=== PATIENT | female | born 1950 | race Caucasian/White ===

== ENCOUNTER → 2019-04-02 | Outpatient (CLI) | payer MEDICARE ==
[~2019-04-02] MED LIST: CYCL10TA9 PO; IBUP-1780 PO
--- NOTE | 2019-04-02 13:50 | Diagnostic Imaging Report ---
INDICATION: Abdominal pain and constipation. TIME OF EXAM: 1:34 PM COMPARISON: No prior studies are available for comparison. FINDINGS: No free air is identified. Bowel gas pattern is nonobstructive. Moderate stool in the right colon is noted. No pathological calcifications are seen. IMPRESSION: Moderate stool of right colon. The study is otherwise unremarkable. Dictated by: Dictated on workstation # [id number]
== END ==
LOC: RAD FS 13:16
PROVIDERS: ATTEND Nurse Practitioner
DX: K59.00 Constipation, unspecified (principal); R10.9 Unspecified abdominal pain; R19.5 Other fecal abnormalities
CPT/HCPCS: 74019

== ENCOUNTER 2019-04-03 00:12 | Emergency (ER) | payer MEDICARE ==
[~2019-04-03] VITALS: Ht 162.6 cm; Wt 69.0 kg
--- NOTE | 2019-04-03 00:23 | ED General ---
General Chief Complaint: Abdominal/GI Problems Stated Complaint: CONSPITATION,LOW BACK PAIN Source of Information: Patient History of Present Illness Date Seen by Provider: Apr 03, 2019 Time Seen by Provider: 00:22 Initial Comments Patient is a 68 y/o female who presents to the ER [facility] c/o constipation. Patient states she has been having pain over the left lower thoracic area back over the last week. Pain is worse with movement and worse when she tries to lay flat. Patient reports she has had difficulty sleeping because of the pain. She did not have any strenuous activity or traumatic event. She has not had similar symptoms in the past. Patient also reports having some difficulties having normal bowel movements since 16 March. Over the last week she also reports having some distention of her abdomen and diffuse mild pain. No nausea or vomiting. Patient was seen by her primary care doctor earlier today when she did have a KUB completed. Patient was told she had constipation and went home and took stool softeners and MiraLAX. She did not have any relief of her symptoms so she came to the ER [facility]. No urinary symptoms. No recent fever or chills. Allergies and Home Medications Allergies Coded Allergies: No Known Allergies (Verified Allergy, Unknown, 04/03/19) Home Medications Cyclobenzaprine HCl 10 Mg Tablet, 10 MG PO TID Prescribed by: SELENA ROSE on 04/03/19 0243 Ibuprofen 800 Mg Tablet, 800 MG PO Q8H PRN for PAIN Prescribed by: SELENA ROSE on 04/03/19 0243 Patient Home Medication List Home Medication List Reviewed: Yes Review of Systems Review of Systems Constitutional: no symptoms reported EENTM: no symptoms reported Respiratory: no symptoms reported Cardiovascular: no symptoms reported Gastrointestinal: see HPI : No Musculoskeletal: no symptoms reported Skin: no symptoms reported All Other Systems Reviewed Negative Unless Noted: Yes Past Cudcjha-Xrcmyd-Zokyoq Hx Patient Social History Recent Foreign Travel: No Contact w/Someone Who Travel: No Physical Exam Vital Signs Vital Signs - First Documented 04/03/19 00:22 Pulse 101 Resp 19 B/P (MAP) 166/83 (110) O2 Delivery Room Air Capillary Refill : Height, Weight, BMI Height: '" Weight: lbs. oz. kg; BMI Method: General Appearance: No Apparent Distress, WD/WN Eyes: Bilateral Eye Normal Inspection HEENT: PERRL/EOMI, Normal ENT Inspection Neck: Full Range of Motion, Normal Inspection Respiratory: Lungs Clear Cardiovascular: Regular Rate, Rhythm, No Murmur Gastrointestinal: Normal Bowel Sounds, Non Tender, Soft Extremity: Normal Capillary Refill Neurologic/Psychiatric: Alert, Oriented x3, office director II-XII Norm as Tested Skin: Normal Color, Warm/Dry Progress/Results/Core Measures Suspected Sepsis SIRS Temperature: Pulse: Respiratory Rate: Laboratory Tests 04/03/19 01:10: White Blood Count 10.4 Blood Pressure / Mean: Laboratory Tests 04/03/19 01:10: Creatinine 0.82, Platelet Count 346 Results/Orders Lab Results Laboratory Tests Test 04/03/19 00:37 04/03/19 01:10 Range/Units Urine Color YELLOW Urine Clarity CLEAR Urine pH 8.0 5-9 Urine Specific [place] 1.020 1.016-1.022 Urine Protein NEGATIVE NEGATIVE Urine Glucose (UA) NEGATIVE NEGATIVE Urine Ketones 1+ H NEGATIVE Urine Nitrite NEGATIVE NEGATIVE Urine Bilirubin NEGATIVE NEGATIVE Urine Urobilinogen 0.2 < = 1.0 MG/DL Urine Leukocyte Esterase NEGATIVE NEGATIVE Urine RBC (Auto) NEGATIVE NEGATIVE Urine RBC 5-10 H /HPF Urine WBC NONE /HPF Urine Squamous Epithelial Cells 25-50 H /HPF Urine Crystals NONE /LPF Urine Bacteria TRACE /HPF Urine Casts PRESENT /LPF Urine Granular Casts 0-2 H /LPF Urine Mucus NEGATIVE /LPF Urine Culture Indicated NO White Blood Count 10.4 4.3-11.0 10^3/uL Red Blood Count 5.01 4.35-5.85 10^6/uL Hemoglobin 14.4 11.5-16.0 G/DL Hematocrit 43 35-52 % Mean Corpuscular Volume 85 80-99 FL Mean Corpuscular Hemoglobin 29 25-34 PG Mean Corpuscular Hemoglobin Concent 34 32-36 G/DL Red Cell Distribution Width 12.4 10.0-14.5 % Platelet Count 346 130-400 10^3/uL Mean Platelet Volume 8.8 7.4-10.4 FL Neutrophils (%) (Auto) 68 42-75 % Lymphocytes (%) (Auto) 19 12-44 % Monocytes (%) (Auto) 8 0-12 % Eosinophils (%) (Auto) 4 0-10 % Basophils (%) (Auto) 1 0-10 % Neutrophils # (Auto) 7.1 1.8-7.8 X 10^3 Lymphocytes # (Auto) 2.0 1.0-4.0 X 10^3 Monocytes # (Auto) 0.9 0.0-1.0 X 10^3 Eosinophils # (Auto) 0.4 H 0.0-0.3 10^3/uL Basophils # (Auto) 0.1 0.0-0.1 10^3/uL Sodium Level 136 135-145 MMOL/L Potassium Level 4.7 3.6-5.0 MMOL/L Chloride Level 98 98-107 MMOL/L Carbon Dioxide Level 23 21-32 MMOL/L Anion Gap 15 H 5-14 MMOL/L Blood Urea Nitrogen 10 7-18 MG/DL Creatinine 0.82 0.60-1.30 MG/DL Estimat Glomerular Filtration Rate > 60 BUN/Creatinine Ratio 12 Glucose Level 132 H 70-105 MG/DL Calcium Level 9.5 8.5-10.1 MG/DL Lipase 24 8-78 U/L My Orders Orders - SELENA ROSE DO Urinalysis (04/03/19 00:33) Ed Iv/Invasive Line Start (04/03/19 00:53) Cbc With Automated Diff (04/03/19 00:53) Basic Metabolic Panel (04/03/19 00:53) Lipase (04/03/19 00:53) Ct Abdomen/Pelvis W (04/03/19 00:53) Ketorolac Injection (Toradol Injection) (04/03/19 01:00) Orphenadrine Injection (Norflex Injectio (04/03/19 01:00) Ns Iv 1000 Ml (Sodium Chloride 0.9%) (04/03/19 01:00) Iohexol Injection (Omnipaque 350 Mg/Ml 1 (04/03/19 01:00) Received Contrast (Hold Metformin- Contr (04/03/19 01:00) Ns (Ivpb) (Sodium Chloride 0.9% Ivpb Bag (04/03/19 01:00) Urine Culture (04/03/19 00:37) Soap Suds Enema (04/03/19 01:07) Ondansetron Injection (Zofran Injectio (04/03/19 02:15) Medications Given in ED Current Medications Medications Dose Ordered Sig/Bear Route Start Time Stop Time Status Last Admin Dose Admin Iohexol 100 ml ONCE ONCE IV 04/03/19 01:00 04/03/19 01:01 DC 04/03/19 01:19 100 ML Ketorolac Tromethamine 30 mg ONCE ONCE IVP 04/03/19 01:00 04/03/19 01:01 DC 04/03/19 01:12 30 MG Ondansetron HCl 4 mg ONCE ONCE IVP 04/03/19 02:15 04/03/19 02:16 DC 04/03/19 02:24 4 MG Orphenadrine Citrate 60 mg ONCE ONCE IV 04/03/19 01:00 04/03/19 01:01 DC 04/03/19 01:12 60 MG Sodium Chloride 100 ml ONCE ONCE IV 04/03/19 01:00 04/03/19 01:01 DC 04/03/19 01:19 100 ML Vital Signs/I&O 04/03/19 00:22 Pulse 101 Resp 19 B/P (MAP) 166/83 (110) O2 Delivery Room Air Capillary Refill : Progress Note : Time: 00:51 Progress Note Patient is examined on arrival to her room. Patient complains of abdominal distention but the physical examination of her abdomen is entirely benign. No tenderness to palpation. No guarding or rebound. I did review the x-ray from earlier today and the patient does have large stool burden but a nonobstructive bowel gas pattern. On physical exam, the patient has muscle spasm and tenderness to palpation about the thoracic paraspinal muscles. Her pain complaint this evening seems very much musculoskeletal rather than pain secondary to constipation. Tonight we will check UA and basic labs, place IV and give pain medications and IVF's and evaluate CT scan. 02:50: All results are reviewed and discussed with the patient. This evening, her labs were unremarkable other than some dehydration. She was given 1 L of normal saline in the ER. She was given Toradol and Norflex intravenous which did mildly help her symptoms. Patient underwent soapsuds enema with no significant return of stool during the ED course. Overall, she was feeling improved. CT scan of the abdomen and pelvis was performed and did not reveal any acute cause for her pain or presentation. The patient presentation seems most consistent with musculoskeletal back pain. She is discharged home with Flexeril and Motrin. I also spoke to her about constipation management which is primarily achieved. [id number] medications, diet, exercise, and better hydration. Although the patient's questions were answered. She was agreeable to the plan of care including discharge home. She will contact her primary care doctor for follow-up as needed or come back to the ER as needed. ECG Initial ECG Impression Date: Apr 03, 2019 Initial ECG Impression Time: 00:50 Departure Impression Primary Impression: Musculoskeletal back pain Additional Impression: Constipation Disposition: 01 HOME, SELF-CARE Condition: Improved Departure-Patient Inst. Referrals: NO,LOCAL PHYSICIAN (PCP/Family) Primary Care Physician Scripts Cyclobenzaprine HCl (Cyclobenzaprine HCl) 10 Mg Tablet 10 MG PO TID for Muscle Spasms, #21 TAB Prov: SELENA ROSE DO 04/03/19 Ibuprofen (Ibuprofen) 800 Mg Tablet 800 MG PO Q8H PRN for PAIN, #30 TAB 0 Refills Prov: SELENA ROSE DO 04/03/19 SELENA ROSE DO Apr 03, 2019 00:23
[2019-04-03 00:47] LABS: CLARITY,URINE CLEAR; COLOR,URINE YELLOW; GLUCOSE, URINE (UA) NEGATIVE (NEGATIVE); KETONES,URINE 1+ (NEGATIVE); NITRITE,URINE NEGATIVE (NEGATIVE); PROTEIN,URINE NEGATIVE (NEGATIVE)
[2019-04-03 00:48] LABS: BILIRUBIN,URINE NEGATIVE (NEGATIVE); LEUKOCYTE ESTERASE ,URINE NEGATIVE (NEGATIVE)
[2019-04-03 00:51] LABS: BACTERIA,URINE TRACE /HPF
[2019-04-03 00:52] LABS: GRANULAR CASTS,URINE 0-2 /LPF; SQUAMOUS EPITHELIAL CELL,UR 25-50 /HPF
[2019-04-03] MEDS ORDERED: KETOROLAC 30 MG/ML VIAL IVP ONE (01:00)
[2019-04-03] MEDS ORDERED: HOLD METFORMIN - RECEIVED CONTRAST 20 ML VIAL IV SCH (01:00)
[2019-04-03] MEDS ORDERED: NS IV 1000 ML 1,000 ML IV SCH (01:00)
[2019-04-03] MEDS ORDERED: NS 100 ML (IVPB) BAG IV ONE (01:00)
[2019-04-03] MEDS ORDERED: ORPHENADRINE 60 MG/2 ML (NORFLEX) AMP IV ONE (01:00)
[2019-04-03] MEDS ORDERED: IOHEXOL 350 MG/ML 100 ML (OMNIPAQUE 350) VIAL IV ONE (01:00)
[2019-04-03 01:13] LABS: HEMATOCRIT 43 % (35-52); HEMOGLOBIN 14.4 G/DL (11.5-16.0); MEAN CORPUSCULAR HEMOGLOBIN 29 PG (25-34); MEAN CORPUSCULAR HGB CONC 34 G/DL (32-36); MEAN CORPUSCULAR VOLUME 85 FL (80-99); RED CELL DISTRIBUTION WIDTH 12.4 % (10.0-14.5); WHITE BLOOD COUNT 10.4 10^3/uL (4.3-11.0)
[2019-04-03 01:14] LABS: BASOPHILS # (AUTO) 0.1 10^3/uL (0.0-0.1); BASOPHILS % (AUTO) 1 % (0-10); EOSINOPHILS # (AUTO) 0.4 10^3/uL (0.0-0.3); EOSINOPHILS % (AUTO) 4 % (0-10); LYMPHOCYTES % (AUTO) 19 % (12-44); MEAN PLATELET VOLUME 8.8 FL (7.4-10.4); MONOCYTES # (AUTO) 0.9 X 10^3 (0.0-1.0); MONOCYTES % (AUTO) 8 % (0-12); NEUTROPHILS # (AUTO) 7.1 X 10^3 (1.8-7.8); NEUTROPHILS % (AUTO) 68 % (42-75); PLATELET COUNT 346 10^3/uL (130-400)
[2019-04-03 01:35] LABS: BUN/CREATININE RATIO 12; CALCIUM 9.5 MG/DL (8.5-10.1); CARBON DIOXIDE 23 MMOL/L (21-32); CHLORIDE 98 MMOL/L (98-107); CREATININE SERUM 0.82 MG/DL (0.60-1.30); GFR ESTIMATED > 60; GLUCOSE 132 MG/DL (70-105); LIPASE 24 U/L (8-78); POTASSIUM 4.7 MMOL/L (3.6-5.0); SODIUM 136 MMOL/L (135-145)
--- NOTE | 2019-04-03 02:01 | NUR ---
NO RESULTS FROM THE SOAP SUDS ENEMA
[2019-04-03] MEDS ORDERED: ONDANSETRON 4 MG/2 ML (SDV) Z0FRAN IVP ONE (02:15)
[2019-04-03] MEDS ORDERED: IBUP-1780 PO (02:43)
[2019-04-03] MEDS ORDERED: CYCL10TA9 PO (02:43)
[2019-04-03 02:55] VITALS: BP 145/83
--- NOTE | 2019-04-03 07:00 | Diagnostic Imaging Report ---
PROCEDURE: CT abdomen and pelvis with contrast. TECHNIQUE: Multiple contiguous axial images were obtained through the abdomen and pelvis after administration of intravenous contrast. Auto Exposure Controls were utilized during the CT exam to meet ALARA standards for radiation dose reduction. INDICATION: Constipation with low back pain for one week. COMPARISON: Radiographs from 04/02/2019 FINDINGS: The lung bases are clear. The heart is normal in size. There is no pericardial effusion. There is a small hiatal hernia. The liver demonstrates no focal lesions. The spleen appears normal. The pancreas demonstrates dorsal agenesis, but no masses are seen. The adrenal glands appear normal. The kidneys demonstrate no acute abnormality. There is moderate stool in the proximal colon. The distal colon is mostly decompressed. There is diverticulosis in the descending and sigmoid colon. No dilated loops of small bowel are seen. There is mild thickening of the duodenal wall proximally. The appendix is not seen but no secondary findings of appendicitis are seen. IMPRESSION: 1. Moderate stool in the proximal colon, although the distal colon is decompressed. There is diverticulosis of the distal colon without diverticulitis. 2. Mild wall thickening of the duodenum, may represent a mild duodenitis. 3. Small hiatal hernia. Dictated by: Dictated on workstation # [id number]
== END 2019-04-03 02:55 | disposition home or self-care (01) ==
LOC: EDUNIT# 00:12 → ER FS 00:13
DX: M79.18 Myalgia, other site (principal); M54.5 Low back pain; K59.00 Constipation, unspecified
CPT/HCPCS: 36415; 74177; 80048; 81000; 83690; 85025; 87088